=== PATIENT | female | born 1955 | race Caucasian/White ===

== ENCOUNTER 2020-12-01 04:56 | Observation (INO) ==
--- NOTE | 2020-11-09 07:39 | History & Physical Report ---
Date of Service November 09, 2020 Assessment & Plan (1) Left knee DJD: Postoperative prescriptions for Percocet and Coumadin will be provided at discharge from the hospital. Anticipate discharge to home with home health services. Preoperative lab work, EKG, and chest x-ray were ordered today. She will speak with the preadmission testing office. The patient already has access to a walker and cane. She will bring her walker the day surgery. PDMP was checked and there are no concerning findings. Preoperative COVID nasal swab test was ordered. She will obtain this 1 week prior to surgery. The patient is aware of the COVID-19 risks associated with surgery. She is currently asymptom atic of any COVID-19 symptoms. She has an appointment to see her PCP, Dr. Harrison, on November 18. She will see me in followup for staple removal on December 16. History of Present Illness Chief Complaint: Left knee pain Primary Care Provider: Neva Harrison, This 65-year-old white female presents for left knee pain she has had for several years. She is scheduled to undergo a left knee total knee arthroplasty on 12/01/2020. It is a longstanding problem. She previously tried activity modification as well as oral anti-inflammatories and viscosupplementation injections. They are no longer working. She has had increasing pain over the last 6 months. No catching or locking. No buckling. She notes that her knees are starting to knock together. Pain is affecting her ADLs. It is worse with weightbearing. She elects to proceed with surgical intervention in hopes of improving her function and pain control. Preoperative imaging has been obtained. Allergies Allergy/AdvReac Type Severity Reaction Status Date / Time latex Allergy Mild Verified 11/09/20 07:31 Home Medications Medication Instructions Recorded Confirmed Type Fish Oil 11/09/20 History Multi Vitamin 11/09/20 History acetaminophen [Tylenol] 11/09/20 History Past Med/Surg History Medical History (Updated 11/09/20 @ 07:39 by Marcelo Jones PA-C) Osteoarthritis Skin cancer Surgical History (Updated 11/09/20 @ 07:36 by Marcelo Jones PA-C) H/O local excision of skin lesion H/O stapedectomy Family History (Updated 11/09/20 @ 07:34 by Marcelo Jones PA-C) Other No pertinent family history Social History (Updated 11/09/20 @ 07:37 by Marcelo Jones PA-C) Smoking Status: Never smoker Hx Alcohol Use: Yes Visual Impairment: No Limitations marital status: Single current occupational status: retired Review of Systems Review of Systems: All systems reviewed & are unremarkable except as noted in HPI & below A total of 10 systems were reviewed. Physical Exam Physical Exam: Vitals: Height 162.5 cm, weight 53.6 kilograms, BMI 20.3, temperature 36.6, BP 120/60, pulse 98, O2 sat 99% on room air. General: Well-developed, well-nourished, elderly white female in no acute distress. Sitting in a chair. Alert and oriented. Skin: Warm and dry with good turgor. No rashes or lesions. No ecchymosis or erythema. No intraarticular effusion. HEENT: Normocephalic, atraumatic. Eyes: PERRLA, EOMI. Nares and oropharynx exams deferred due to COVID precautions. Heart: RRR, no MGR. Mildly tachycardic today. Lungs: Clear to auscultation bilaterally, no crackles, rhonchi or wheezing, good air movement. Abdomen: Bowel sounds present x4, soft, nontender. No organomegaly. No masses. Musculoskeletal: Left knee evaluation reveals no obvious asymmetry. No intraarticular effusion. She does have a valgus alignment. She has full terminal extension. Flexion to around degrees. Strength is 5/5 with fairly good quad tone. She has focal discomfort with palpation over the medial joint line. No lateral joint line discomfort with palpation today. No defect in the patellar tendon or quadriceps tendon. Stable collateral ligaments. Ambulates with an antalgic gait. Neurologic: Gross sensation is intact across both lower extremities by soft touch. Peripheral pulses are 2+. Results & Data Results & Data ([facility]) Diagnostic Findings Radiographic imaging previously obtained shows end-stage DJD of the left knee. She has significant joint space narrowing, periarticular osteophytes and sclerosis.
--- NOTE | 2020-11-17 08:44 | Anesthesiology Consultation ---
Date of Service November 17, 2020 Assessment & Plan (1) Encounter for pre-operative examination: COVID screening: Per assessment on 11/16: Travel screen negative, no known COVID- 19 positive contacts or current COVID-19 related symptoms. Surgeon arranging preop COVID testing (scheduled 11/24; PAT[facility]). Awaiting results. Chart Review Chart Review: Acceptable Risk for Surgery and Patient NOT seen in Pre Admission Testing History Surgery Operation Date: 12/01/20 07:15 Proposed Procedures p Left Total Knee Arthroplasty - Toney Elise MD Height/Weight Height: 5 ft 2 in Weight: 52.163 kg Allergies Allergy/AdvReac Type Severity Reaction Status Date / Time latex Allergy Intermediate localized Verified 11/16/20 15:27 rash No Known Drug Allergies Allergy Verified 11/16/20 15:28 Medications Home Medications Medication Instructions Recorded Confirmed Last Taken acetaminophen [Tylenol] 325 mg PO BID PRN 11/09/20 11/16/20 Unknown ascorbic acid (vitamin C) [Vitamin 500 mg PO QAM 11/16/20 11/16/20 Unknown C] calcium-vitamin D3-vitamin K 1 tab PO QAM 11/16/20 11/16/20 Unknown [Viactiv] glucos sul [id number]-Mn 1 cap PO BID 11/16/20 11/16/20 Unknown [Glucosamine Chondroitin] ibuprofen 400 mg PO BID PRN 11/16/20 11/16/20 Unknown multivitamin 1 tab PO QAM 11/16/20 11/16/20 Unknown omega-3 fatty acids [Fish Oil] 1,000 mg PO BID 11/16/20 11/16/20 Unknown Past Medical History Medical History BCC (basal cell carcinoma) Melanoma Osteoarthritis Past Family History Family History Other No family history of adverse response to anesthesia No pertinent family history Past Surgical History Surgical History H/O local excision of skin lesion (~08/2019) H/O stapedectomy (~1996) Right ear History of colonoscopy Social History Smoking Status: Never smoker Do You Dip or Chew Tobacco: No Hx Alcohol Use: Yes Alcohol type: wine alcohol intake frequency: a few times a month Hx Substance Use: No substance use type: does not use Lab Results Anesthesia Preop Results Results Anesthesia Widget: WBC 5.35 K/uL (4.8-10.8) 11/08/20 Hgb 14.2 g/dL (12.0-16.0) 11/08/20 Hct 40.5 % (37-47) 11/08/20 Plt 241 K/uL (130-400) 11/08/20 Na 140 mmol/L (136-145) 11/08/20 K 4.3 mmol/L (3.5-5.1) 11/08/20 Cl 108 mmol/L (98-107) H 11/08/20 CO2 27 mmol/L (21-32) 11/08/20 BUN 19 mg/dl (7-18) H 11/08/20 Creat 0.82 mg/dl (0.6-1.2) 11/08/20 Glucose Level 103 mg/dl (70-99) H 11/08/20 PT 10.2 Seconds (9.0-12.0) 11/08/20 PTT 23.9 Seconds (21.0-31.0) 11/08/20 INR 1.0 (0.9-1.1) 11/08/20 Urine Color Yellow 11/08/20 Urine Appearance Clear (Clear) 11/08/20 Urine pH 6.0 (4.5-7.5) 11/08/20 Urine Specific [place] 1.012 (1.000-1.030) 11/08/20 Urine Protein Negative (Negative) 11/08/20 Urine Glucose (UA) Negative (Negative) 11/08/20 Urine Ketones Negative (Negative) 11/08/20 Urine Blood Negative (Negative) 11/08/20 Urine Nitrite Negative (Negative) 11/08/20 Urine Bilirubin Negative (Negative) 11/08/20 Urine Urobilinogen Negative (Negative) 11/08/20 Urine Leukocyte Esterase Negative (Negative) 11/08/20 Blood Type B Negative 11/08/20 Antibody Screen NEGATIVE 11/08/20 Testing Laboratory Results Blood Type B Negative 11/08/20 09:21 Antibody Screen NEGATIVE 11/08/20 09:21 Electrocardiogram Date: 11/08/20 SR with PACs at 97bpm. Chest X-Ray Date: 11/08/20 FINDINGS: Cardiac mediastinal and hilar silhouettes are within normal limits. Hyperinflation. Mild linear subsegmental scarring/atelectasis of the left lung base. No pneumothorax, pleural effusion, lobar airspace consolidation or overt pulmonary edema. Degenerative changes of the shoulders and spine. Mild levoscoliosis of the lower thoracic spine. IMPRESSION: No acute process.
--- NOTE | 2020-11-30 12:40 | History & Physical Bridge Note ---
Date of Service November 30, 2020 History & Physical Bridge Note I have examined the patient, reviewed the History & Physical and in the interval since the performance of the History & Physical I have noted the following changes of clinical significance:consent obtained/site verified/covid screen negative. no changes noted
[2020-12-01] MEDS ORDERED: ceFAZolin 2000MG 2,000 MG/15 ML SYR IV SCH (06:00)
[2020-12-01] MEDS ORDERED: LR 500ML BOLUS, THEN 15ML/HR IV SCH (06:00)
[2020-12-01] MEDS ORDERED: TRANEXAMIC ACID 1,000 MG **IV Pre-op IV SCH (06:00)
[2020-12-01] MEDS ORDERED: LR 60ML/HR IV SCH (06:00)
[2020-12-01] MEDS ORDERED: ROPIVACAINE 0.5% HCL/PF 150 MG, BUPIVACAINE 0.75% MPF 20 ML, EPINEPHrine 0.15 MG, Ketor... INFIL SCH (06:00)
[2020-12-01] MEDS ORDERED: BUPIVACAINE 0.5 % 5 MG/1 ML PF 10ML VIAL ONE (06:10)
[2020-12-01] MEDS ORDERED: ROPIVACAINE 0.5% 5 MG/ML 30 ML VIAL ONE (06:10)
[2020-12-01] MEDS ORDERED: PROPOFOL IV EMULSION 10 MG/ML 20 ML VIAL IV ONE (06:35)
[2020-12-01] MEDS ORDERED: LIDOCAINE HCL 2% 2 ML VIAL/AMP(20MG/ML) INFIL ONE ×2 (06:35→07:58)
[2020-12-01] MEDS ORDERED: MIDAZOLAM HCL 1 MG/ML 2ML VIAL ONE ×2 (06:36→07:29)
[2020-12-01] MEDS ORDERED: fentaNYL citrate 100 MCG/2 ML VIAL ONE (06:41)
[2020-12-01] MEDS ORDERED: HYDROmorphone INJ 1 MG/ML SYRINGE IV PRN (06:42)
[2020-12-01] MEDS ORDERED: ORTHO JOINT ANESTHETIC ONE (06:42)
[2020-12-01] MEDS ORDERED: ePHEDrine sulfate 50 MG/ML AMP IV PRN (06:42)
[2020-12-01] MEDS ORDERED: KETOROLAC 30 MG/ML VIAL IV PRN (06:42)
[2020-12-01] MEDS ORDERED: ONDANSETRON INJ 2 MG/ML 2 ML VIAL IV PRN ×2 (06:42→09:44)
[2020-12-01] MEDS ORDERED: ATROPINE SULFATE 0.1 MG/ML 10ML SYR IV PRN (06:42)
--- NOTE | 2020-12-01 08:23 | Post Operative Brief Note ---
Immediate Post Op Note v1 Date of Surgery December 01, 2020 Pre & Post Diagnosis Operation Date: 12/01/20 07:00 Pre-Op Diagnosis: Left Knee End Stage Degenerative Joint Disease Post-Op Diagnosis: Left Knee End Stage Degenerative Joint Disease I identified the patient and participated in the time-out.: Yes Procedure Operation Date: 12/01/20 07:00 Actual Procedures p Left Total Knee Arthroplasty(Left) - Toney Elise MD Surgeon Toney Elise MD Imaging Assistant [facility] Estimated Blood Loss 20 Findings Consistent with Post-Op Diagnosis
--- NOTE | 2020-12-01 08:32 | Operative Report ---
Post Operative Report Pre & Post Diagnosis Operation Date: 12/01/20 07:00 Pre-Op Diagnosis: Left Knee End Stage Degenerative Joint Disease Post-Op Diagnosis: Left Knee End Stage Degenerative Joint Disease I identified the patient and participated in the time-out.: Yes Procedure Operation Date: 12/01/20 07:00 Actual Procedures p Left Total Knee Arthroplasty(Left) - Toney Elise MD Surgeon NADINE Elise MD Volunteer Specialist Robert HOPKINS Estimated Blood Loss 20 Findings Consistent with Post-Op Diagnosis Specimens see operative report Drains none Complications none Disposition Accompanied Patient To Recovery: Yes Disposition: Recovery Room Indications This 65 year old female presented to the office with complaints of left knee pain. She had tried conservative care measures without improvement. She elected to proceed with surgical intervention after being educated about potential risks and outcomes. Preoperative imaging was obtained. Description of Procedure Patient was administered a regional block and spinal anesthesia, and then taken to the operating room where she was given Sedation. She was prepped and draped in the usual sterile fashion. Please see Dr. Elise's operative report for specifics of the procedure. I was present for the entire case from initial patient positioning through final wound closure. Assistance was provided in tissue retraction, hemostasis, trial implant placement, final implant placement, and final wound closure. Patient was taken to the recovery room in satisfactory condition. I attest to the content of the Intraoperative Record and any orders documented therein. Any exceptions are noted below.
--- NOTE | 2020-12-01 08:55 | XRay Report ---
TWO VIEWS LEFT KNEE CLINICAL HISTORY: Postoperative examination. FINDINGS: AP and crosstable lateral portable views of the left knee are obtained. A left knee arthrop lasty is in near anatomic alignment. There has been undersurface remodeling of the patella. No acute fracture is seen. There are expected postoperative changes around the knee including skin clips, soft tissue edema, and subcutaneous gas. IMPRESSION: Expected postoperative changes status post left knee arthroplasty. No acute fracture is s een. ACT 112: Negative or not required by law. Electronically signed by: Raj Veliz M.D. 12/01/2020 8:53 AM
--- NOTE | 2020-12-01 09:00 | Operative Report (OR) ---
DATE OF OPERATION: 12/01/2020 SURGEON: Toney Elise MD. THIRD RIGGER: Marcelo Jones PA-C. No resident or fellow available. PREOPERATIVE DIAGNOSIS: Osteoarthritis with valgus deformity, left knee. POSTOPERATIVE DIAGNOSIS: Osteoarthritis with valgus deformity, left knee. OPERATION PERFORMED: Cemented left total knee replacement. PERIOPERATIVE SITUATION: Medically cleared female with intractable valgus deformity, chronic pain, tricompartmental with severe disease laterally. At this point in time, and knows the risks and consequences, please see consent. She understands there are no guarantees. DESCRIPTION OF PROCEDURE: The patient was appropriately identified, site verified, consent verified. Antibiotics confirmed as being given. The left lower extremity was prepped and draped in usual routine fashion. Anterior exposure of the knee was then made, full thickness flaps raised. She was quite thin, arthrotomy performed. Synovectomy completed, osteophytes resected. The knee flexed. Distal femur entered. Cruciates resected, tibia subluxated, menisci resected. Distal femur resected 12 mm, proximal tibia 4 mm, the extension gap was excellent. Femur sized between a 4 and a 3, was measured 4 cut 3. There was no notching. The box cut was then made and the size 3 fit well. The tibia was then broached and reamed to a size 3 and a 12.5 mm spacer gave the most stability in extension and mid range flexion, so that was elected. There was slight hyperextension with the 10 mm spacer. Patella was then sized, resected leaving 15 mm and it was a 38, patella tracked well. All trial elements were then removed. Orthomix was injected all about the knee. The knee irrigated with Betadine Pulsavac and the permanent cemented in position, tibia, femur and patella in that order. At 12 minutes, the tourniquet was deflated. There was minimal bleeding, estimated at 20 mL. Minor bleeding points controlled with electrocautery, bone wax anteriorly. The wound was irrigated one final time and enclosed at 40 degrees of flexion with #2 Vicryl, 2-0 Vicryl and stainless steel clips approach. Appropriate dressing applied. The patient transferred to recovery room in satisfactory condition having tolerated the procedure well. ESTIMATED BLOOD LOSS: 20 mL. CRYSTALLOID: Per anesthesia. SUMMARY OF IMPLANTS: Size 3 left femur, size 3 mobile bearing tray, size 38 patella, size 3 x 12.5 mm insert. Two bags of [place] G cement. Bone pathology pending. DVT prophylaxis per protocol. I attest to the content of the Intraoperative Record and any orders documented therein. Any exception s are noted below.
--- NOTE | 2020-12-01 09:01 | Anesthesiology Progress Note ---
Date of Service December 01, 2020 Anesthesia Post Procedure Vital Signs Vital Signs: Temp Pulse Pulse Resp BP BP Pulse Ox 12/01/20 08:55 96 H 17 107/80 100 12/01/20 08:45 90 14 111/69 100 12/01/20 08:35 103 H 26 H 108/64 100 12/01/20 08:29 36.3 C L 102 H 18 104/68 100 12/01/20 05:34 36.6 C 99 H 20 142/79 H 100 Transfer of Care Handoff Completed per policy Notes Mental Status: alert / awake / arousable Patient Amnestic to Procedure: Yes Nausea / Vomiting: adequately controlled Pain: adequately controlled Airway Patency, RR, SpO2: stable & adequate BP & HR: stable & adequate Hydration State: stable & adequate Neuraxial Anesthesia: was administered and sensory block is resolving Anesthetic Complications: no major complications apparent
[2020-12-01] MEDS ORDERED: MAGNESIUM HYDROXIDE SUSP 30 ML UDC PO PRN (09:44)
[2020-12-01] MEDS ORDERED: ALUMINUM/MAGNESIUM SUSP 30 ML UDC PO PRN (09:44)
[2020-12-01] MEDS ORDERED: NALOXONE HCL 0.4 MG/1 ML VIAL/CARP IV PRN (09:44)
[2020-12-01] MEDS ORDERED: diphenhydrAMINE 50 MG/ML VIAL IV PRN (09:44)
[2020-12-01] MEDS ORDERED: bisacodyL 10 MG SUPP PR PRN (09:44)
[2020-12-01] MEDS ORDERED: oxyCODONE HCL IR 5 MG TAB (IMMEDIATE RELEASE) PO PRN (09:44)
[2020-12-01] MEDS ORDERED: HYDROmorphone INJ 0.5 MG/0.5 ML SYR IV PRN (09:44)
[2020-12-01] MEDS ORDERED: METOCLOPRAMIDE HCL INJ 5 MG/ML 2 ML VIAL IV PRN (09:44)
[2020-12-01] MEDS ORDERED: SODIUM CHLORIDE 0.9% 1000ML 1,000 ML IV SCH (10:00)
--- NOTE | 2020-12-01 11:34 | Progress Notes ---
DATE: 12/01/2020 SUBJECTIVE: Postop check, status post left total knee replacement. The patient is doing well. Denies any chest pain, shortness of breath, fever, chills, nausea, vomiting, headache. OBJECTIVE: Vital signs are stable. She is afebrile. Neurovascular exam is limited by spinal. Postop x-rays look excellent. ASSESSMENT: Doing well. Discharge to home tomorrow if she does well tonight. Continue care pathway.
[2020-12-01] MEDS: MULTIVITAMIN TAB PO SCH (11:36)
[2020-12-01] MEDS: DOCUSATE SODIUM 100 MG CAP PO SCH ×2 (11:36→20:36)
[2020-12-01] MEDS: KETOROLAC TROMETHAMINE 15 MG/ML VIAL IV SCH ×3 (11:36→22:26)
--- NOTE | 2020-12-01 11:37 | Discharge Summary (DS) ---
DATE OF DISCHARGE: 12/02/2020. CHIEF COMPLAINT: Left knee pain. HISTORY OF PRESENT ILLNESS: The patient underwent elective left total knee replacement. Hospital course to date has been uneventful. She continues to as well, she will be discharged home tomorrow. HOME MEDICATIONS: Include fish oil, multivitamins and Tylenol. PAST SURGICAL HISTORY/PAST MEDICAL HISTORY: Remarkable for osteoarthritis, skin cancer, scaphoid ectomy, skin lesion excision. SOCIAL HISTORY: She does not smoke. Social alcohol. She is retired. She is single. REVIEW OF SYSTEMS: Noncontributory. Postop x-rays look excellent. ASSESSMENT: Doing well status post left total knee replacement. We will discharge to home tomorrow after PT/OT, if she does well.
[2020-12-01] MEDS ORDERED: ORTHO WARFARIN NOMOGRAM SCH (14:00)
[2020-12-01] MEDS ORDERED: TRANEXAMIC ACID / 0.7% NACL 1,000 MG/100 ML BAG IV SCH (14:30)
[2020-12-01] MEDS: ACETAMINOPHEN 500 MG TAB PO SCH ×2 (15:01→22:25)
[2020-12-01] MEDS: ceFAZolin 2000MG 2,000 MG/15 ML SYR IV SCH ×2 (15:14→22:26)
[2020-12-01] MEDS ORDERED: WARFARIN SOD 4 MG TAB PO SCH (16:00)
[2020-12-01] MEDS: FERROUS GLUCONATE 324 MG TAB PO SCH (16:57)
[2020-12-01] MEDS: ASCORBIC ACID 500 MG TAB PO SCH (16:57)
[2020-12-01] MEDS ORDERED: SENNA 8.6 MG TAB PO SCH (21:00)
[2020-12-02] MEDS: ACETAMINOPHEN 500 MG TAB PO SCH (05:22)
[2020-12-02] MEDS: KETOROLAC TROMETHAMINE 15 MG/ML VIAL IV SCH (05:22)
[2020-12-02 06:47] LABS: Hematocrit (blood only) 34.8 % (37-47); Hemoglobin 11.9 g/dL (12.0-16.0); Mean Corpuscular Hemoglobin 30.4 pg (25-34); Mean Corpuscular Hgb Conc 34.2 g/dL (32-36); Mean Corpuscular Volume 88.8 fL (80-100); Mean Platelet Volume 9.5 fL (7.4-10.4); Platelet Count 180 K/uL (130-400); RDW Coefficient of Variation 13.7 % (11.5-14.5); RDW Standard Deviation 44.6 fL (36.4-46.3); Red Blood Count 3.92 M/uL (4.2-5.4); White Blood Count 11.53 K/uL (4.8-10.8)
[2020-12-02 06:57] LABS: INR 1.1 (0.9-1.1); Prothrombin Time 11.2 Seconds (9.0-12.0)
[2020-12-02 07:19] LABS: BUN Creatinine Ratio 16.8 (10-20); Est GFR (African American) 97.2; Est GFR (Non-African American) 83.8; Potassium 4.5 mmol/L (3.5-5.1)
[2020-12-02] MEDS ORDERED: dexAMETHasone 10 MG in SYRINGE 0 ML IV SCH (08:00)
[2020-12-02] MEDS: FERROUS GLUCONATE 324 MG TAB PO SCH (08:47)
[2020-12-02] MEDS: ASCORBIC ACID 500 MG TAB PO SCH (08:47)
[2020-12-02] MEDS: DOCUSATE SODIUM 100 MG CAP PO SCH (08:47)
[2020-12-02] MEDS: MULTIVITAMIN TAB PO SCH (08:47)
--- NOTE | 2020-12-02 10:25 | Orthopedic Progress Note ---
Date of Service December 02, 2020 Assessment & Plan (1) S/P total knee replacement using cement: Patient was educated regarding today's findings. Conservative care measures were discussed. Postsurgical dressings were changed by me. We did review her questions in detail. Written discharge instructions were provided. Prescriptions for Percocet and Coumadin were sent to her pharmacy. She will take Coumadin 4 mg daily, and have her blood rechecked on Sunday. Discontinue using her knee immobilizer on Sunday morning. Postsurgical dressings will stay in place until Sunday, and then may be changed as needed for soiling. Follow-up in the office in 2 weeks as scheduled for staple removal. Call the office with any other concerns or questions. She will use her walker at all times for ambulation Admission and Anticipated Discharge Date Admission Date: December 01, 2020 Subjective Patient is seen in her room this morning. She is sitting in a chair at bedside. Alert and oriented. Denies any chest pain, shortness of breath, nausea, vomiting, or abdominal pain. States she did fairly well overnight. She feels ready for discharge to home. Her knee pain is controlled at this point. Review of Systems Review of Systems: Unchanged from yesterday. Physical Exam Physical Exam: General: Well-developed, well-nourished female, in no acute distress. Sitting in her chair. Alert and oriented. Conversive. Skin: Warm and dry with good turgor. Postoperative dressings are in place on the left knee. Upon removal, there is expected postoperative edema. No ecchymosis. Scant dried drainage on her dressings. No active bleeding. Loree are intact. Wound edges are well approximated. Musculoskeletal: Left knee evaluation reveals full terminal extension. She has intact straight leg raise. Intact motor function to her ankle and toes. Flexion to around 40 degrees. Neurologic: Gross sensation is intact across the left leg by soft touch. Peripheral pulses are 2+. Results & Data ([facility]) Vital Signs (Past 12 Hours) Vital Signs Temp Pulse Resp BP BP Pulse Ox 12/02/20 07:21 36.6 C 80 16 109/74 100 12/02/20 03:00 36.8 C 76 20 111/71 100 12/01/20 23:16 36.6 C 70 16 93/59 L 100 Laboratory Results WBCs this morning are 11.5. Hemoglobin 11.9, hematocrit 34.8. INR 1.1 this morning with PT of 11.2. PRP is unremarkable with potassium of 3.5, BUN 12, creatinine 0.74, and glucose of 106.
--- NOTE | 2020-12-03 05:50 | Discharge Summary (DS) ---
Patient of Dr. Elise. DATE OF SURGERY: 12/01/2020. PROCEDURE: Left knee total knee arthroplasty using cement. CONSULTATIONS: None. ALLERGIES: LATEX. NKDA. PAST MEDICAL HISTORY: Significant for osteoarthritis and skin cancer. PAST SURGICAL HISTORY: Skin biopsies, stapedectomy. FAMILY HISTORY: Noncontributory. SOCIAL HISTORY: The patient is single. Retired. No tobacco use, occasional ETOH use. HOSPITAL COURSE: The patient was admitted through ambulatory services on 12/01/2020 for left total knee arthroplasty. She had an uneventful left total knee arthroplasty surgery. The patient was taken to the recovery room in satisfactory condition. She did well and was transferred to the orthopedic floor. She did well overnight. Denies any chest pain, shortness of breath, nausea, vomiting, or abdominal pain. She was able to ambulate using her walker last evening. Upon recheck this morning, she is doing well. She feels well enough to go home. Pain is controlled with oral pain medication. She has already participated with PT and is awaiting OT. Her dressings were changed this morning by me. There is expected postoperative edema, but no ecchymosis and no active bleeding. Vital signs, BP 109/74, pulse 82, respirations 16, temperature 36.6, O2 sat 100% on room air. LABORATORY DATA: WBCs this morning are 11.5, hemoglobin 11.9, hematocrit 34.8. INR of 1.1. PRP is unremarkable. Glucose today is 106. DISCHARGE MEDICATIONS: Prescriptions for Percocet 5/325 mg and Coumadin 2 mg have been sent to her pharmacy. She will continue her Tylenol, vitamin C, and multivitamin. She will hold her fish oil, glucosamine chondroitin, ibuprofen, and Vivactiv. DISCHARGE INSTRUCTIONS: She will take her Coumadin 4 mg on Sunday, Sunday, and Sunday, and have her blood rechecked on Sunday. She will discontinue her knee immobilizer on Sunday morning. Uses the walker for ambulation. Ice and elevate frequently to reduce pain and swelling. Follow up in the office in 2 weeks for staple removal. She will leave her current dressings in place until Sunday, and then change as needed for soiling. Written discharge instructions were provided. PLAN: Discharge to home today with home health services.
== END 2020-12-02 13:09 | disposition home health service (06) ==
LOC: 3E 04:56 → ASU 04:56